=== PATIENT | female | born 1940 | race Caucasian/White ===

== ENCOUNTER 2021-06-26 19:11 | Emergency (ER) | payer MEDICARE, SELFPAY ==
[2021-06-26 18:58] VITALS: BP 194/94; PULSE 66; RESP 18; TEMP 36.7; O2SAT 95; BMI 26.9
[2021-06-26 18:59] VITALS: BMI 26.9
--- NOTE | 2021-06-26 18:59 | CT_ITS ---
PROCEDURE INFORMATION: Exam: CT Head Without Contrast Exam date and time: 06/26/2021 7:15 PM Age: 80 years old Clinical indication: Injury or trauma; Fall; Blunt trauma (contusions or hematomas); Consciousness not specified; Injury date: 06/26/21 TECHNIQUE: Imaging protocol: Computed tomography of the head without contrast. Radiation optimization: All CT scans at this facility use at least one of these dose optimization techniques: automated exposure control; mA and/or kV adjustment per patient size (includes targeted exams where dose is matched to clinical indication); or iterative reconstruction. COMPARISON: No relevant prior studies available. FINDINGS: Brain: The brain demonstrates diffuse volume loss. White matter hypodensities most consistent with chronic small vessel ischemic change. No visible evolving territorial infarct. No hemorrhage. Cerebral ventricles: Enlarged in keeping with volume loss. Pituitary gland and sella: There is a partially empty sella turcica, usually an incidental finding. Paranasal sinuses: Mild maxillary sinus mucosal thickening. Mastoid air cells: Chronically underpneumatized. Bones/joints: No acute calvarial fracture seen. Soft tissues: Posterior scalp soft tissue swelling. IMPRESSION: No acute intracranial abnormality seen.
--- NOTE | 2021-06-26 18:59 | XR_ITS ---
PROCEDURE INFORMATION: Exam: XR Chest Exam date and time: 06/26/2021 7:25 PM Age: 80 years old Clinical indication: Injury or trauma; Fall; Blunt trauma (contusions or hematomas) TECHNIQUE: Imaging protocol: XR of the chest. Views: 2 views. COMPARISON: CT CERVICAL SPINE WO CON 06/26/2021 7:16 PM FINDINGS: Lungs: Granulomatous change. No consolidation. Pleural spaces: Unremarkable. No pleural effusion. No pneumothorax. Heart/Mediastinum: Unremarkable. No cardiomegaly. Diaphragm: Elevated right hemidiaphragm. Bones/joints: Unremarkable. IMPRESSION: No acute findings.
--- NOTE | 2021-06-26 18:59 | CT_ITS ---
PROCEDURE INFORMATION: Exam: CT Cervical Spine Without Contrast Exam date and time: 06/26/2021 7:16 PM Age: 80 years old Clinical indication: Injury or trauma; Fall; Blunt trauma; Injury date: 06/26/21; Additional info: Fall-fall in parking lot on concrete- hit back on head and neck. TECHNIQUE: Imaging protocol: Computed tomography images of the cervical spine without contrast. Radiation optimization: All CT scans at this facility use at least one of these dose optimization techniques: automated exposure control; mA and/or kV adjustment per patient size (includes targeted exams where dose is matched to clinical indication); or iterative reconstruction. COMPARISON: CT HEAD/BRAIN WO CON 06/26/2021 7:15 PM FINDINGS: Bones/joints: Anatomic alignment. No acute fracture seen. Discs/Spinal canal/Neural foramina: No high-grade disc height loss. Moderate to marked degenerative changes at C1-C2. Moderate upper cervical facet arthropathy. No severe central spinal canal stenoses. Neural foraminal stenoses on the right at C3-C4 and C4-C5 due to uncovertebral and facet arthropathy. Thyroid: The thyroid gland is atrophic. Lungs: Lung apices are normal. Vasculature: There is a left ICA stent. Soft tissues: Unremarkable. IMPRESSION: No cervical spine fracture seen.
--- NOTE | 2021-06-26 18:59 | XR_ITS ---
PROCEDURE INFORMATION: Exam: XR Pelvis Exam date and time: 06/26/2021 7:25 PM Age: 80 years old Clinical indication: Injury or trauma; Fall; Blunt trauma (contusions or hematomas); Bilateral; Pelvic region; Injury date: 06/26/21 TECHNIQUE: Imaging protocol: XR pelvis. Views: 1 or 2 view. COMPARISON: No relevant prior studies available. FINDINGS: Bones/joints: Unremarkable. No acute fracture. Soft tissues: Unremarkable. IMPRESSION: No acute findings.
--- NOTE | 2021-06-26 19:01 | ECG_ITS ---
APPROVED REPORT Exam: Resting ECG HR:67 bpm ECG Measurements Heart Rate 67 AXES SC 160 P 48 QRSd 93 QRS -15 QT 393 T 30 QTc 408 Conclusion SINUS RHYTHM MINIMAL VOLTAGE CRITERIA FOR LVH, CONSIDER NORMAL VARIANT [MEETS CRITERIA IN ONE OF: R(aVL), S(V1), R(V5), R(V5/V6)+S(V1)] NONSPECIFIC T-WAVE ABNORMALITY BORDERLINE ECG UNCONFIRMED REPORT Electronically signed by : Brenden Reed MD 06/27/2021 08:43:10
[2021-06-26 20:01] VITALS: BP 185/76; PULSE 66; O2SAT 91
[2021-06-26 20:40] LABS: Basophils # 0.1 K/mm3 (0-0.2); Basophils % 0.8 % (0.1-2.0); Eosinophils # 0.2 K/mm3 (0.0-0.4); Eosinophils % 1.8 % (0.1-12.0); Hematocrit 41.2 % (37.0-47.0); Hemoglobin 13.6 g/dL (12.2-16.2); Lymphocytes # 2.2 K/mm3 (0.7-4.5); Lymphocytes % 22.3 % (10-50); Mean Corpuscular HGB Conc 33.1 g/dL (31.8-35.4); Mean Corpuscular Hemoglobin 30.3 pg (27.0-31.2); Mean Corpuscular Volume 91.5 fl (81-99); Mean Platelet Volume 9.4 fl (7.4-10.4); Monocytes # 0.4 K/mm3 (0.1-1.0); Monocytes % 4.3 % (1.7-9.3); Neutrophils % 70.6 % (37.0-80.0); Platelet Count 197 K/mm3 (142-424); Red Cell Distribution Width 14.6 % (11.5-17.5); White Blood Count 9.9 K/mm3 (4.8-10.8)
--- NOTE | 2021-06-26 20:46 | HMH.EDFALL ---
ED Disposition Clinical Impression: Concussion without loss of consciousness Qualifiers: Encounter type: initial encounter Qualified Code(s): S06.0X0A - Concussion without loss of consciousness, initial encounter Contusion of hip, right Qualifiers: Encounter type: initial encounter Qualified Code(s): S70.01XA - Contusion of right hip, initial encounter Fall Qualifiers: Encounter type: initial encounter Qualified Code(s): W19.XXXA - Unspecified fall, initial encounter Disposition: Home, Self-Care Condition on Discharge: Good Instructions: DI for Concussion Additional Instructions: ice and see pcp for follow up Referrals: Ho Rollins [Primary Care Provider] - - Critical Care Critical Care Time: No Attestation: On 06/26/21, the high probability of a clinically significant, sudden or life threatening deterioration of the following system(s) required my full and direct attention, intervention and personal management. The time I documented below is in addition to time spent performing reported procedures but includes the following listed in this critical care notation. Medical Decision Making - Medical Records Medical records reviewed: Yes: I reviewed the patient's medical records. - José Luis Inquiry Pt receiving controlled substance: No Vital Signs: 06/26/21 18:58 06/26/21 20:01 06/26/21 21:31 Temperature 98.0 F Temperature Source Oral Pulse Rate 66 65 Pulse Rate [Right] 66 Respiratory Rate 18 Blood Pressure 185/76 H 151/67 H Blood Pressure [Right Arm] 194/94 H Blood Pressure Mean [Right Arm] 127 02 Sat by Pulse Oximetry 95 91 L 91 L Oxygen Delivery Method Room Air Room Air 06/26/21 22:00 Temperature Temperature Source Pulse Rate 62 Pulse Rate [Right] Respiratory Rate Blood Pressure 133/63 Blood Pressure [Right Arm] Blood Pressure Mean [Right Arm] 02 Sat by Pulse Oximetry 90 L Oxygen Delivery Method Room Air - Lab Data Lab results reviewed: Yes: I reviewed the patient's lab results. Lab Results 06/26/21 19:50: WBC 9.9, RBC 4.50, Hgb 13.6, Hct 41.2, MCV 91.5, MCH 30.3, MCHC 33.1, RDW 14.6, Plt Count 197, MPV 9.4, Neut % (Auto) 70.6, Lymph % (Auto) 22.3, [place] % (Auto) 4.3, Eos % (Auto) 1.8, Baso % (Auto) 0.8, Neut # (Auto) 7.0, Lymph # (Auto) 2.2, [place] # (Auto) 0.4, Eos # (Auto) 0.2, Baso # (Auto) 0.1 06/26/21 19:50: Sodium 137, Potassium 4.6, Chloride 106, Carbon Dioxide 24, Anion Gap 11.6, BUN 15, Creatinine 0.80, Estimated Creat Clear 51, Estimated GFR 69, Est GFR ( Amer) 83, Glucose 149 H, Calcium 9.2, Total Bilirubin 0.6, AST 29, ALT 13, Alkaline Phosphatase 59, Total Protein 5.8 L, Albumin 3.3 L, Globulin 2.5, Albumin/Globulin Ratio 1.3 06/26/21 20:35: Troponin I 0.06 H Result diagrams: 06/26/21 19:50 06/26/21 19:50 Orders (Tests/Meds): ED MEDICATIONS Discontinued Medications Generic Name Dose Route Start Last Admin Trade Name Nandini PRN Reason Stop Dose Admin Morphine Sulfate 4 mg 06/26/21 20:41 06/26/21 20:42 Morphine 4mg/Ml Syringe IV 06/26/21 20:42 4 mg ONCE ONE Administration Ondansetron HCl 4 mg 06/26/21 20:41 06/26/21 20:42 Ondansetron 4mg/2ml Vial IV 06/26/21 20:42 4 mg ONCE ONE Administration ORDERS Category Date Time Status CT cervical spine wo con Stat Cat Scan 06/26/21 18:[address] head/brain wo con Stat Cat Scan 06/26/21 18:59 Taken XR chest AP Stat Exams 06/26/21 18:59 Taken XR pelvis 1-2V Stat Exams 06/26/21 18:59 Taken Troponin I Q3H Lab 06/26/21 23:45 Ordered Troponin I Q3H Lab 06/27/21 02:45 Ordered - Radiology Data #1 Image(s): Chest, Pelvis, Hip Image Reviewed: Yes I have reviewed radiologist's interpretation Preliminary Findings: No Fracture Seen - CT Data CT Scan: Head, C-Spine, Other (hip rt ) Time Received: 22:[address] Reviewed: Yes: I have viewed the radiologist's interpretation Preliminary Findings: No Fracture Seen - ECG Data Tracing #1 Normal Sinus R
--- NOTE | 2021-06-26 20:47 | CT_ITS ---
PROCEDURE INFORMATION: Exam: CT Right Lower Extremity Without Contrast, Hip Exam date and time: 06/26/2021 8:55 PM Age: 80 years old Clinical indication: Pain; Hip; Right; Additional info: Fall TECHNIQUE: Imaging protocol: CT of the Right lower extremity without contrast was performed. Exam focused on the hip. Radiation optimization: All CT scans at this facility use at least one of these dose optimization techniques: automated exposure control; mA and/or kV adjustment per patient size (includes targeted exams where dose is matched to clinical indication); or iterative reconstruction. COMPARISON: CR XR PELVIS 1-2V 06/26/2021 7:25 PM FINDINGS: Bones/joints: No acute fracture or dislocation. No focal bony lesions. Soft tissues: There is a large soft tissue hematoma involving the upper lateral thigh. IMPRESSION: Large soft tissue hematoma overlying the upper lateral thigh no underlying acute fracture or dislocation.
[2021-06-26 21:31] VITALS: BP 151/67; PULSE 65; O2SAT 91
[2021-06-26 21:42] LABS: Alanine Aminotransferase 13 U/L (12-78); Albumin Level 3.3 g/dl (3.5-5.0); Albumin/Globulin Ratio 1.3 (1.1-1.8); Alkaline Phosphatase 59 U/L (38-126); Anion Gap 11.6 mEq/L (5-15); Aspartate Amino Transferase 29 U/L (14-36); Bilirubin,Total 0.6 mg/dl (0.2-1.3); Blood Urea Nitrogen 15 mg/dl (7-17); Calcium 9.2 mg/dl (8.4-10.2); Carbon Dioxide 24 mmol/L (22.0-30.0); Chloride 106 mmol/L (98-107); Creatinine Clearance Estimated 51 mL/min (50-200); Estimated Glomerular Filt Rate 69 ml/min (>60); GFR (African American) 83 ML/MIN (>60); Globulin 2.5 g/dL (1.3-3.2); Glucose 149 mg/dl (74-100); Potassium 4.6 mmoL/L (3.5-5.1); Sodium 137 mmol/L (136-145); Total Protein,Serum 5.8 g/dl (6.3-8.2)
[2021-06-26 21:52] LABS: Troponin I 0.06 ng/ml (0.00-0.034)
[2021-06-26 22:00] VITALS: BP 133/63; PULSE 62; O2SAT 90
--- NOTE | 2021-06-26 22:00 | PC.NURSE ---
Updated pt on POC
[2021-06-26 22:29] VITALS: BP 133/63; PULSE 63; RESP 18; TEMP 36.8; O2SAT 98
== END 2021-06-26 22:34 | disposition home or self-care (01) ==
PROVIDERS: Emergency Medicine; Emergency Provider Emergency Medicine; PCP Family Medicine
DX: S06.0X0A Concussion without loss of consciousness, initial encounter (principal); S70.01XA Contusion of right hip, initial encounter; W01.198A Fall on same level from slipping, tripping and stumbling with subsequent striking against other object, initial encounter; Y92.89 Other specified places as the place of occurrence of the external cause
CPT/HCPCS: 36415; 70450; 71045; 72125; 72170; 73700; 80053; 84484; 85025; 93005; 96374; 96375; 99284; J2405

== ENCOUNTER 2023-08-11 15:17 | Emergency (ER) | payer MEDICARE, SELFPAY ==
[2023-08-11 15:19] VITALS: BP 142/60; PULSE 71; RESP 20; TEMP 36.9; O2SAT 94; BMI 26.6
--- NOTE | 2023-08-11 15:20 | ED_ITS ---
<Statement entered by Katie Gonzalez MD - 08/11/23 22:59> I was consulted by the NISHANT, and we discussed the complexity of the problems being addressed. I approved the treatment and management plan for this patient's care in the emergency department, thus performing a substantive portion of the medical decision making. Katie Gonzalez MD, STEPH, FACEP Discharge Plan Disposition Patient Disposition: Home, Self-Care Condition: Good Prescriptions Prescriptions: No Action omeprazole 20 mg capsule,delayed release(DR/EC) 20 mg PO DAILY losartan 25 mg tablet 25 mg PO DAILY levothyroxine 100 mcg capsule 100 mcg PO DAILY trazodone 100 MG tablet 100 mg PO DAILY apixaban 5 MG tablets,dose pack 5 mg PO DAILY Referrals Follow up/Referrals: Ho Rollins [Primary Care Provider] - See instructions Activity Restrictions/Add. Instructions Additional Instructions/Restrictions: Please return to the emergency department for any worsening signs or symptoms including fever pain inability to tolerate oral intake etc. Follow-up with PCP in 1 week. Clinical Impressions Clinical Impression: Acute diverticulitis Instructions Patient Instructions: DI for Diverticulitis Discharge ED Provider: Katie Gonzalez General Adult HPI General Chief complaint: Abdominal Pain Stated complaint: Bloody Stool,stomach pain Time Seen by Provider: 08/11/23 15:20 History of Present Illness HPI narrative: Patient presents for acute abdominal pain and dark stool. Patient states that she acutely had onset of several episodes of loose stool today along with crampy left lower quadrant abdominal pain and approximately 5 bowel movements however the last 1 she reported is very dark. Patient is on Xarelto and takes Tylenol only she denies chest pain shortness of breath fever chills hemoptysis hematochezia hematemesis. Related Data Home Medications Medication Instructions Recorded Confirmed levothyroxine 100 mcg capsule 100 mcg PO DAILY hypothyroid 12/20/20 06/26/21 losartan 25 mg tablet 25 mg PO DAILY Hypertension 12/20/20 06/26/21 omeprazole 20 mg capsule,delayed 20 mg PO DAILY GERD 12/20/20 06/26/21 release apixaban 5 mg (74 tabs) tablets in 5 mg PO DAILY Blood thinner 06/26/21 06/26/21 a dose pack trazodone 100 mg tablet 100 mg PO DAILY Depression 06/26/21 06/26/21 Allergies Allergy/AdvReac Type Severity Reaction Status Date / Time atorvastatin Allergy Verified 12/20/20 13:59 [facility] Disclaimer: The information contained in this section may have been updated after the patient was seen, as this information can be updated by other users. Social History Smoking Status: Never smoker alcohol intake: never current occupational status: retired Travel in the last 8 weeks: None ROS Obtained: Yes Systems reviewed as appropriate & no additional complaints except as documented Physical Exam General General appearance: alert and in no apparent distress Respiratory Respiratory exam: Present normal lung sounds bilaterally Cardiovascular Cardiovascular exam: Present regular rate and normal rhythm Abdominal Exam Abdominal exam: Present soft, tenderness (Patient has tenderness to palpation in the left lower quadrant primarily but some diffuse abdominal tenderness as well without rebound or guarding or rigidity.) and normal bowel sounds; Absent guarding, rebound or rigidity Neurological Exam Neurological exam: Present alert and oriented X3 Medical Decision Making Medical Records Medical records reviewed: Yes I reviewed the patient's medical records. José Luis Inquiry Pt receiving controlled substance: No Vital Signs: 08/11/23 15:19 Temperature 98.4 F Temperature Source Oral Pulse Rate [Right Radial] 71 Respiratory Rate 20 Blood Pressure [Right Arm] 142/60 H Blood Pressure Mean [Right Arm] 87 02 Sat by Pulse Oximetry 94 L Oxygen Delivery Method Room Air Lab Data Lab results reviewed: Yes I reviewed the patient's lab results. Lab Results 08/11/23 15:45: WBC 11.0 H, RBC 4.62, Hgb 14.3, Hct 42.3, MCV 91.7, MCH 31.0, MCHC 33.8, RDW 14.7, Plt Count 225, MPV 8.8, Neut % (Auto) 69.7, Lymph % (Auto) 22.7, [place] % (Auto) 5.3, Eos % (Auto) 1.5, Baso % (Auto) 0.7, Neut # (Auto) 7.6, Lymph # (Auto) 2.5, [place] # (Auto) 0.6, Eos # (Auto) 0.2, Baso # (Auto) 0.1, PT 11.3, INR 1.01, Sodium 138, Potassium 3.6, Chloride 99, Carbon Dioxide 32 H, Anion Gap 10.6, BUN 22 H, Creatinine 1.20 H, Estimated Creat Clear 41, Estimated GFR 43 L, Est GFR ( Amer) 52 L, Glucose 134 H, Calcium 9.7, Total Bilirubin 0.5, AST 26, ALT 20, Alkaline Phosphatase 71, Total Protein 7.4 D, Albumin 4.1, Globulin 3.3 H, Albumin/Globulin Ratio 1.2, Blood Type O Negative, Antibody Screen Negative 08/11/23 : Stool Occult Blood Negative 08/11/23 15:45 08/11/23 15:45 Orders (Tests/Meds): ED MEDICATIONS Generic Name Dose Route Start Last Admin Trade Name Freq PRN Reason Stop Dose Admin Sodium Chloride 10 ml 08/11/23 16:52 08/11/23 16:53 Sodium Chloride 0.9% 10ml Syr (Rad Only) IV 09/10/23 16:51 10 ml NEEDED PRN Administration Maintain IV Site Discontinued Medications Generic Name Dose Route Start Last Admin Trade Name Freq PRN Reason Stop Dose Admin Amoxicillin/Clavulanate Potassium 1 each 08/11/23 17:17 Amoxicillin/Clavulanate Potassium 875/125mg Tablet PO 08/11/23 17:18 ONCE ONE Lactated Ringer's 1,000 mls @ 999 mls/hr 08/11/23 15:22 08/11/23 15:49 Lactated Ringer's 1000 Ml Bag IV 08/11/23 16:22 999 mls/hr .Q1H1M ONE Administration Iopamidol 75 ml 08/11/23 16:52 08/11/23 16:53 Iopamidol-370 (76%);100ml Bottle IV 08/11/23 16:53 75 ml ONCE ONE Administration Ondansetron HCl 4 mg 08/11/23 15:37 08/11/23 15:49 Ondansetron 4mg/2ml Vial IV 08/11/23 15:38 4 mg ONCE ONE Administration ORDERS Category Date Time Status Type and Screen Stat BBK 08/11/23 15:[address] abdomen pelvis w con Stat Cat Scan 08/11/23 15:22 Completed CBC w/Auto Diff [Complete Blood Count Auto Diff] Stat Lab 08/11/23 15:45 Completed CMP [Comprehensive Metabolic Panel] Stat Lab 08/11/23 15:45 Completed INR [Prothrombin Time INR] Stat Lab 08/11/23 15:45 Completed Occult Blood,Stool Stat Lab 08/11/23 Completed Medical Decision Narrative: In summary patient is a 82-year-old female who presents to the emergency department for evaluation of acute abdominal pain and dark stool. Patient is hemodynamically stable upon arrival, afebrile. Physical exam is remarkable for tenderness to palpation diffusely but more focally so in the left lower quadrant without rebound or guarding or rigidity. Bowel sounds normal active. Digital rectal exam performed with nurse present showed a mostly empty vault however no janis blood noted on my glove. Differential diagnosis includes gastroenteritis versus diverticulitis versus GI bleed etc. Initial workup will be conducted with hematologic labs urinalysis CT scan abdomen pelvis stool for occult blood. Initial interventions include fluid bolus and Tylenol Zofran. Initial workup reviewed by me shows that her hematologic labs are nonactionable, stool for occult blood is negative, my informal interpretation of her CT scan abdomen pelvis shows sigmoid diverticulitis without evidence of perforation.. Upon repeat evaluation patient had improvement of her nausea but still having some left lower quadrant abdominal pain. Given this patient is appropriate for discharge with prescription for Augmentin with first dose given now. Critical Care Critical Care Time Critical Care Time: No
--- NOTE | 2023-08-11 15:22 | CT_ITS ---
PROCEDURE INFORMATION: Exam: CT Abdomen And Pelvis With Contrast Exam date and time: 08/11/2023 4:52 PM Age: 82 years old Clinical indication: Condition or disease; Other: Melena TECHNIQUE: Imaging protocol: Computed tomography of the abdomen and pelvis with contrast. Radiation optimization: All CT scans at this facility use at least one of these dose optimization techniques: automated exposure control; mA and/or kV adjustment per patient size (includes targeted exams where dose is matched to clinical indication); or iterative reconstruction. Contrast material: ISOVUE; Contrast volume: 75 ml; Contrast route: IV; COMPARISON: 1. CR XR PELVIS 1-2V 06/26/2021 7:[address] HIP RT WO CON 06/26/2021 8:55 PM FINDINGS: Lungs: Mild bibasilar atelectasis and scattered subpleural reticular opacities. Lingular and left lower lobe calcified granulomas. Liver: 1.6 cm simple cyst in the caudate lobe of the liver. No hepatomegaly. Gallbladder and biliary ducts: Status post cholecystectomy. No significant biliary ductal dilitation. Pancreas: Normal. No ductal dilation. Spleen: Calcified granuloma in the spleen. No splenomegaly. Adrenal glands: Normal. No mass. Kidneys and ureters: Bilateral renal cortical thinning. No urinary tract calculi or hydronephrosis. Stomach and bowel: Severe diverticulosis of the descending and sigmoid colon. Mild inflammatory change adjacent to an enlarged diverticulum at the proximal sigmoid colon in the left lower quadrant. Mild diverticulosis of the ascending and transverse colon. No dilated or thickened bowel loops. Appendix: No evidence of appendicitis. Intraperitoneal space: No free fluid, abscess, or free air. Vasculature: Moderate atherosclerotic disease without aneurysm. Lymph nodes: Calcified bilateral hilar and subcarinal lymph nodes. No abdominal adenopathy. Urinary bladder: Unremarkable as visualized. Reproductive: Status post hysterectomy. No adnexal masses. Bones/joints: Mild lumbar spine dextroscoliosis. [id number] lumbar spine facet arthropathy and mild multilevel degenerative disc disease. Soft tissues: Unremarkable. IMPRESSION: 1. Mild uncomplicated diverticulitis of the sigmoid colon. 2. Prior granulomatous disease.
[2023-08-11] MEDS: LACTATED RINGERS 1000ML 1,000 ML 999 ML IV (15:49)
[2023-08-11] MEDS: ONDANSETRON 4MG/2ML VIAL 4 MG IV (15:49)
[2023-08-11 15:57] LABS: Occult Blood,Stool Negative (Negative)
[2023-08-11 16:00] VITALS: BP 121/58; PULSE 71; O2SAT 95
[2023-08-11 16:01] LABS: Basophils # 0.1 K/mm3 (0-0.2); Basophils % 0.7 % (0.1-2.0); Eosinophils # 0.2 K/mm3 (0.0-0.4); Eosinophils % 1.5 % (0.1-12.0); Hematocrit 42.3 % (37.0-47.0); Hemoglobin 14.3 g/dL (12.2-16.2); Lymphocytes # 2.5 K/mm3 (0.7-4.5); Lymphocytes % 22.7 % (10-50); Mean Corpuscular HGB Conc 33.8 g/dL (31.8-35.4); Mean Corpuscular Volume 91.7 fl (81-99); Mean Platelet Volume 8.8 fl (7.4-10.4); Monocytes # 0.6 K/mm3 (0.1-1.0); Monocytes % 5.3 % (1.7-9.3); Neutrophils # 7.6 K/mm3 (1.8-7.8); Neutrophils % 69.7 % (37.0-80.0); Platelet Count 225 K/mm3 (142-424); Red Blood Count 4.62 M/mm3 (4.20-5.40); Red Cell Distribution Width 14.7 % (11.5-17.5)
[2023-08-11 16:07] LABS: INR 1.01 (0.9-1.1); Prothrombin Time 11.3 seconds (10.1-12.5)
[2023-08-11 16:11] LABS: Chloride 99 mmol/L (98-107); Potassium 3.6 mmoL/L (3.5-5.1); Sodium 138 mmol/L (136-145)
[2023-08-11 16:14] LABS: Alanine Aminotransferase 20 U/L (12-78); Albumin Level 4.1 g/dl (3.5-5.0); Albumin/Globulin Ratio 1.2 (1.1-1.8); Alkaline Phosphatase 71 U/L (38-126); Anion Gap 10.6 mEq/L (5-15); Aspartate Amino Transferase 26 U/L (14-36); Bilirubin,Total 0.5 mg/dl (0.2-1.3); Blood Urea Nitrogen 22 mg/dl (7-17); Calcium 9.7 mg/dl (8.4-10.2); Carbon Dioxide 32 mmol/L (22.0-30.0); Creatinine Clearance Estimated 41 mL/min (50-200); Estimated Glomerular Filt Rate 43 ml/min (>60); GFR (African American) 52 ML/MIN (>60); Globulin 3.3 g/dL (1.3-3.2); Glucose 134 mg/dl (74-100); Total Protein,Serum 7.4 g/dl (6.3-8.2)
[2023-08-11 16:30] VITALS: BP 123/52; PULSE 66; O2SAT 96
[2023-08-11] MEDS: SODIUM CHLORIDE 0.9% 10ML SYR (RAD ONLY) 10 ML IV (16:53)
[2023-08-11] MEDS: IOPAMIDOL-370 (76%);100ML BOTTLE 75 ML IV (16:53)
[2023-08-11 17:01] VITALS: BP 150/54; PULSE 65; O2SAT 95
[2023-08-11 17:31] VITALS: BP 124/43; PULSE 66; O2SAT 96
[2023-08-11] MEDS: OXYCODONE 5MG IMMEDIATE RELEASE TABLET 5 MG PO (17:37)
[2023-08-11] MEDS: AMOXICILLIN/CLAVULANATE POTASSIUM 875/125MG TABLET 1 EACH PO (17:37)
[2023-08-11 17:55] VITALS: BP 124/54; PULSE 70; RESP 20; TEMP 36.7; O2SAT 99
== END 2023-08-11 17:56 | disposition home or self-care (01) ==
PROVIDERS: Physician Assistant; Emergency Provider Student in an Organized Health Care Education/Training Program; PCP Family Medicine
DX: R10.32 Left lower quadrant pain (principal); K57.32 Diverticulitis of large intestine without perforation or abscess without bleeding
CPT/HCPCS: 74177; 80053; 82272; 85025; 85610; 86850; 96361; 96374; 99285; G0328; J2405; J7120; Q9967